=== PATIENT | female | born 1955 | race Native Hawaiian/Other Pacific Islander ===

== ENCOUNTER 2018-12-28 18:59 | Outpatient (CLI) | payer BC | END 2018-12-28 19:09 | disposition short-term general hospital (02) | LOC: AMB 18:59 | DX: R10.9 Unspecified abdominal pain (principal); R11.2 Nausea with vomiting, unspecified; R19.7 Diarrhea, unspecified; R55 Syncope and collapse | CPT/HCPCS: A0425; A0427 ==

== ENCOUNTER 2018-12-28 19:15 | Observation (INO) | payer BC ==
[~2018-12-28] VITALS: Ht 172.7 cm; Wt 106.3 kg
[2018-12-28 19:18] VITALS: BP 118/69; TEMP 98.1
[2018-12-28 19:34] VITALS: BP 123/61
[2018-12-28 19:37] LABS: PLATELET COUNT 356 K/uL (152-353)
[2018-12-28 19:47] LABS: POTASSIUM 4.1 mmol/L (3.6-5.2); SODIUM 138 mmol/L (136-145)
[2018-12-28 19:56] VITALS: BP 120/63
[2018-12-28 20:26] VITALS: BP 127/55
[2018-12-29 00:07] VITALS: BP 137/56; TEMP 98.1; Ht 172.7 cm; Wt 106.3 kg
[2018-12-29 04:00] VITALS: BP 108/58; TEMP 97.7
[2018-12-29 05:35] LABS: PLATELET COUNT 248 K/uL (152-353)
[2018-12-29 05:56] LABS: POTASSIUM 4.8 mmol/L (3.6-5.2)
[2018-12-29 08:00] VITALS: BP 113/54; TEMP 97.9
== END 2018-12-29 09:40 | disposition home or self-care (01) ==
LOC: ED 19:15 → MED/SURG 20:30
PROVIDERS: Internal Medicine; Student in an Organized Health Care Education/Training Program; ADMIT Student in an Organized Health Care Education/Training Program
DX: K52.89 Other specified noninfective gastroenteritis and colitis (principal); E86.0 Dehydration; K85.90 Acute pancreatitis without necrosis or infection, unspecified; R55 Syncope and collapse; E03.8 Other specified hypothyroidism
CPT/HCPCS: 36415; 80048; 80053; 83630; 83690; 83735; 84484; 85027; 87015; 87045; 87324; 87328; 87329; 87449; 87899; 93005; 96360; 96361; 96365; 96366; 96375; 99220; 99284; G0378; J0744; J1170; J1644; J2405; J3490; Q9963